=== PATIENT | female | born 1975 | race African-American/Black ===

== ENCOUNTER 2020-05-03 13:41 | Emergency (ER) | payer OTHER, SELFPAY ==
[~2020-05-03] VITALS: Ht 165.1 cm; Wt 65.0 kg
[2020-05-03 13:54] VITALS: BP 125/76
== END 2020-05-03 17:00 | disposition home or self-care (01) ==
LOC: ER 13:41
DX: Z03.818 Encounter for observation for suspected exposure to other biological agents ruled out (principal)
CPT/HCPCS: 87635; 99283; C9803